=== PATIENT | female | born 1975 | race Caucasian/White ===

== ENCOUNTER → 2024-03-05 | Outpatient (CLI) | payer BC, SELFPAY ==
--- NOTE | 2024-03-05 15:44 | VDLE_ITS ---
Reason For Study: RLE PAIN RIGHT LEFT GSV is normal. CFV is compressible, spontaneous, phasic, CFV is compressible, spontaneous, phasic, competent, and demonstrates normal competent and demonstrates normal augmentation. augmentation. FV is compressible, spontaneous, phasic, competent and demonstrates normal augmentation. POP V is compressible, spontaneous, phasic, competent and demonstrates normal augmentation. T/P Trunk is compressible. PTV is compressible. RT PerV is compressible. Procedure This is a venous duplex using B-mode, color flow and spectral Doppler. Exam performed in department. A preliminary report was called and/or faxed to Dr. Layla Anderson @ [phone] & Dr. Isaias Perez @ [phone]. VL/Venous Duplex US, Unilateral Interpretation Summary Deep veins of the right lower extremity are patent and compressible segmentally . There is no evidence of right lower extremity deep vein thrombosis. Valvular competence cory ears intact within the proximal deep venous system on the right . The right great saphenous vein a ppears patent and compressible segmentally. The left common femoral vein is patent and compressib le . Ordering Physician: Willie Anderson Referring Physician: Jay Perez Performed By: Ingrid Ruth, KATHY, RVT
== END | disposition home or self-care (01) ==
LOC: CVS 15:40
PROVIDERS: PCP Student in an Organized Health Care Education/Training Program; Referring Provider Orthopaedic Surgery; Visit Provider Orthopaedic Surgery
DX: M79.661 Pain in right lower leg (principal)
CPT/HCPCS: 93971